=== PATIENT | male | born 1945 | race Caucasian/White ===

== ENCOUNTER 2020-03-30 11:24 | Emergency (ER) | payer OTHER ==
[~2020-03-30] VITALS: Ht 175.3 cm; Wt 90.7 kg
[2020-03-30 11:49] VITALS: BP 201/84; Ht 175.3 cm; Wt 90.7 kg
== END 2020-03-30 12:53 | disposition home or self-care (01) ==
LOC: ED 11:24
DX: S31.115A Laceration without foreign body of abdominal wall, periumbilic region without penetration into peritoneal cavity, initial encounter (principal); I10 Essential (primary) hypertension; Z98.890 Other specified postprocedural states; W26.0XXA Contact with knife, initial encounter; Y93.89 Activity, other specified; Y92.89 Other specified places as the place of occurrence of the external cause; Y99.8 Other external cause status
CPT/HCPCS: 90715

== ENCOUNTER 2020-06-19 03:50 | Emergency (ER) | payer OTHER ==
[~2020-06-19] VITALS: Ht 175.3 cm; Wt 93.4 kg
[2020-06-19 03:58] VITALS: Ht 175.3 cm; Wt 93.4 kg
[2020-06-19 05:43] LABS: ALKALINE PHOSPHATASE 64 U/L (46-116); ALT/SGPT 43 U/L (16-63); AST/SGOT 25 U/L (15-37); BILIRUBIN TOTAL 1.56 mg/dL (0.20-1.00); CALCIUM 9.5 mg/dL (8.5-10.1); CARBON DIOXIDE 30.6 mmol/L (21-32); CHLORIDE SERUM 98 mmol/L (98-107); CREATININE SERUM 1.2 mg/dL (0.7-1.3); GLUCOSE SERUM 98 mg/dL (74-106); SODIUM SERUM 137 mmol/L (136-145); TOTAL PROTEIN, SERUM 6.9 g/dL (6.4-8.2)
[2020-06-19 05:52] LABS: BASOPHIL % 0.8 % (0.2-1.5); PLATELET COUNT 163 x10^3mcL (152-348)
[2020-06-19 05:57] LABS: POTASSIUM SERUM 2.6 mmol/L (3.5-5.1)
[2020-06-19 07:21] LABS: RED CELL DISTRIBUTION WIDTH 14.7 % (12.1-16.2)
[2020-06-19 12:32] VITALS: BP 174/81
== END 2020-06-19 12:33 | disposition home or self-care (01) ==
LOC: ED 03:50
PROVIDERS: Emergency Medicine
DX: M54.6 Pain in thoracic spine (principal); I10 Essential (primary) hypertension; I48.91 Unspecified atrial fibrillation; E87.6 Hypokalemia
CPT/HCPCS: J2405; J3010; J3475; J3480; J3490; J7050; Q9967

== ENCOUNTER 2020-06-24 02:06 | Emergency (ER) | payer OTHER ==
[~2020-06-24] VITALS: Ht 175.3 cm; Wt 93.0 kg
[2020-06-24 02:41] VITALS: Ht 175.3 cm; Wt 93.0 kg
[2020-06-24 04:05] LABS: BASOPHIL % 1.2 % (0.2-1.5); PLATELET COUNT 173 x10^3mcL (152-348)
[2020-06-24 04:06] LABS: RED CELL DISTRIBUTION WIDTH 14.7 % (12.1-16.2)
[2020-06-24 04:14] LABS: CALCIUM 9.1 mg/dL (8.5-10.1); CARBON DIOXIDE 32.2 mmol/L (21-32); CHLORIDE SERUM 102 mmol/L (98-107); GLUCOSE SERUM 97 mg/dL (74-106); POTASSIUM SERUM 3.2 mmol/L (3.5-5.1); SODIUM SERUM 141 mmol/L (136-145)
[2020-06-24 04:23] LABS: ALBUMIN 4.2 g/dL (3.4-5.0); ALKALINE PHOSPHATASE 62 U/L (46-116); ALT/SGPT 39 U/L (16-63); AST/SGOT 28 U/L (15-37); BILIRUBIN TOTAL 1.5 mg/dL (0.20-1.00); LIPASE 72 IU/L (73-393); TOTAL PROTEIN, SERUM 7.2 g/dL (6.4-8.2)
[2020-06-24 05:49] LABS: microscopic required? YES; urine erythrocyte NEGATIVE (NEGATIVE)
[2020-06-24 06:44] VITALS: BP 180/96
== END 2020-06-24 06:44 | disposition home or self-care (01) ==
LOC: ED 02:06
PROVIDERS: Emergency Medicine
DX: I10 Essential (primary) hypertension (principal); E87.6 Hypokalemia; Z98.890 Other specified postprocedural states